=== PATIENT | female | born 1970 | race Caucasian/White ===

== ENCOUNTER 2021-10-08 16:51 | Emergency (ER) | payer BC ==
[2021-10-08] MEDS ORDERED: Bacitracin 1 PK ONE (17:08)
[2021-10-08] MEDS ORDERED: Boostrix 0.5 ML (Tdap) VIAL ONE (17:14)
== END 2021-10-08 17:17 | disposition home or self-care (01) ==
LOC: BURERS 16:51
DX: S51.811A Laceration without foreign body of right forearm, initial encounter (principal); I10 Essential (primary) hypertension; K21.9 Gastro-esophageal reflux disease without esophagitis; Z23 Encounter for immunization; W26.8XXA Contact with other sharp object(s), not elsewhere classified, initial encounter
CPT/HCPCS: 12001; 90471; 90715

== ENCOUNTER 2022-04-30 21:54 | Emergency (ER) | payer BC ==
[2022-04-30] MEDS ORDERED: Ketorolac Tromethamine 30 MG/ML VIAL ONE (22:24)
[2022-04-30] MEDS ORDERED: Morphine 2 MG/ML VIAL ONE (22:24)
[2022-04-30] MEDS ORDERED: Ondansetron PF 4 MG/2 ML Vial ONE (22:24)
[2022-04-30] MEDS ORDERED: Morphine 4 MG/ML VIAL ONE (22:24)
[2022-04-30 22:34] LABS: #Basophils 0.1 thou/uL (0.0-0.2); #Eosinphils 0.1 thou/uL (0.0-0.7); #Lymphocytes 2.1 thou/uL (1.20-3.40); #Monocytes 0.8 thou/uL (0.11-0.59); #Neutrophils 6.4 thou/uL (1.40-6.50); %Eosinophils 1.3 % (0.0-10.0); %Lymphocytes 21.7 % (21.0-51.0); %Monocytes 8.4 % (0.0-10.0); %Neutrophils 67.6 % (42.0-75.0); Hemoglobin 14.1 g/dL (12.0-16.0); Mean Corpuscular HGB CONC 33.5 g/dL (32.0-36.0); Mean Corpuscular Volume 83.7 fl (78.0-98.0); Platelet Count 275 thou/uL (130-400); RBC Distribution Width 12.6 % (11.5-14.5); Red Blood Cell (RBC) Count 5.03 mill/uL (4.20-5.40); White Blood Cell (WBC) Count 9.5 thou/uL (4.8-10.8)
[2022-04-30 22:37] LABS: Bilirubin Negative (Negative); Blood, Urine Trace (Negative); Clarity Clear (Clear); Glucose, Urine (Dipstick) Negative (Negative); Ketone, Urine Negative (Negative); Leukocyte Negative (Negative); Nitrite Negative (Negative); Protein, Urine (Dipstick) Negative (Neg-Trace); Urobilinogen 0.2 mg/dL (Less than 2); pH, Urine 6.5 (5.0-9.0)
[2022-04-30 22:40] LABS: Specific Gravity, Urine 1.003 (1.002-1.036)
[2022-04-30 22:41] LABS: Pregnancy Test - Urine (BHCG) Negative (Negative); Pregu Control Background? CLEAR/WHITE (CLR/WHITE); Pregu Control Bar Appear? YES (CONTROL BAR); Specific Gravity 1.003 (1.002-1.036)
[2022-04-30 22:46] LABS: Bacteria/HPF Rare-Few HPF (None Seen); RBC/HPF 0-3 HPF (0-3); Squamous Epithelial None Seen HPF (0-3); WBC/HPF None Seen HPF (0-3)
[2022-04-30 22:48] LABS: ALT (SGPT) 74 U/L (8-55); AST (SGOT) 88 U/L (5-34); Albumin 4.2 g/dL (3.5-5.0); Alkaline Phosphatase 96 U/L (40-110); Anion Gap 16 mmol/L (10-20); BUN (Urea Nitrogen) 15 mg/dL (9.8-20.1); Calc. Creatinine Clearance 0 mL/min (70-130); Calcium 9.6 mg/dL (7.8-10.44); Carbon Dioxide 24 mmol/L (22-29); Chloride 98 mmol/L (98-107); Estimated GFR 63; Glucose 107 mg/dL (70-105); Potassium 3.3 mmol/L (3.5-5.1); Protein, Total 7.2 g/dL (6.0-8.3); Sodium 135 mmol/L (136-145)
[2022-04-30] MEDS ORDERED: HYDROcodone/Acetaminophen 5/325 mg Tablet ONE (23:19)
== END 2022-04-30 23:45 | disposition home or self-care (01) ==
LOC: BURERS 21:54
DX: N20.2 Calculus of kidney with calculus of ureter (principal); R11.0 Nausea; R10.9 Unspecified abdominal pain; I10 Essential (primary) hypertension; K21.9 Gastro-esophageal reflux disease without esophagitis; Z87.891 Personal history of nicotine dependence
CPT/HCPCS: 74176; 80053; 81003; 81015; 81025; 85025; 87086; 96374; 96375; J1885; J2270; J2405